=== PATIENT | female | born 1985 | race Caucasian/White ===

== ENCOUNTER 2017-04-02 09:52 | Emergency (ER) | payer SELFPAY ==
[~2017-04-02] VITALS: Ht 162.5 cm; Wt 49.9 kg
== END 2017-04-02 11:12 | disposition home or self-care (01) ==
LOC: ED 09:52
DX: S05.01XA Injury of conjunctiva and corneal abrasion without foreign body, right eye, initial encounter (principal); F17.200 Nicotine dependence, unspecified, uncomplicated; W21.89XA Striking against or struck by other sports equipment, initial encounter; Y93.89 Activity, other specified; Y92.89 Other specified places as the place of occurrence of the external cause; Y99.8 Other external cause status

== ENCOUNTER 2018-02-25 14:32 | Emergency (ER) | payer OTHER ==
[~2018-02-25] VITALS: Ht 162.5 cm; Wt 59.0 kg
[2018-02-25] MEDS ORDERED: Motrin,Rufen800 MG PO (16:02)
== END 2018-02-25 16:16 | disposition home or self-care (01) ==
LOC: ED 14:32
DX: O87.0 Superficial thrombophlebitis in the puerperium (principal); O99.335 Smoking (tobacco) complicating the puerperium; F17.210 Nicotine dependence, cigarettes, uncomplicated; Z98.890 Other specified postprocedural states

== ENCOUNTER → 2019-05-27 | Outpatient (CLI) | payer OTHER ==
[~2019-05-27] MED LIST: Motrin,Rufen800 MG PO
== END | disposition home or self-care (01) ==
LOC: RAD 15:53
DX: R07.9 Chest pain, unspecified (principal)

== ENCOUNTER → 2020-04-02 | Outpatient (CLI) | payer BC ==
[2020-04-02 11:29] LABS: HEMATOCRIT 41.5 % (37.0-47.0); MEAN CELL VOLUME 97.9 fl (81.0-99.0); MEAN CORPUSCULAR HGB 32.1 pg (27.0-31.0); MEAN CORPUSCULAR HGB CONC 32.8 g/dl (33.0-37.0); MEAN PLATELET VOLUME 9.9 fl (9.6-12.3); RED BLOOD COUNT 4.24 10*6/uL (4.10-5.10); WHITE BLOOD COUNT 9.2 10*3/uL (4.8-10.8)
[2020-04-02 11:54] LABS: ALBUMIN 3.8 gm/dl (3.1-4.5); ALKALINE PHOSPHATASE 47 U/L (45-117); BUN 15 mg/dl (7-24); CHLORIDE 109 mmol/L (98-107); CREATININE 0.94 mg/dL (0.55-1.02); POTASSIUM 4.6 mmol/L (3.5-5.1); SGOT/AST 15 IU/L (3-35); SGPT/ALT 21 U/L (12-78); SODIUM 138 mmol/L (136-145); TOTAL PROTEIN 7.3 gm/dL (6.4-8.2)
== END | disposition home or self-care (01) ==
LOC: LAB 10:51
PROVIDERS: Family Medicine
DX: T14.8XXA Other injury of unspecified body region, initial encounter (principal); R52 Pain, unspecified; W57.XXXA Bitten or stung by nonvenomous insect and other nonvenomous arthropods, initial encounter; Y93.89 Activity, other specified; Y92.89 Other specified places as the place of occurrence of the external cause; Y99.8 Other external cause status

== ENCOUNTER 2020-09-12 10:49 | Emergency (ER) | payer BC ==
[~2020-09-12] VITALS: Ht 162.5 cm; Wt 54.4 kg
[2020-09-12] MEDS ORDERED: IBUPROFEN600 MG PO (12:55)
[2020-09-12] MEDS ORDERED: NORCO 5-325 TA1 EACH PO (15:43)
== END 2020-09-12 15:57 | disposition home or self-care (01) ==
LOC: ED 10:49
DX: S42.115A Nondisplaced fracture of body of scapula, left shoulder, initial encounter for closed fracture (principal); W10.8XXA Fall (on) (from) other stairs and steps, initial encounter; Y93.89 Activity, other specified; Y92.89 Other specified places as the place of occurrence of the external cause; Y99.8 Other external cause status

== ENCOUNTER 2022-04-10 13:54 | Emergency (ER) | payer BC ==
[~2022-04-10] VITALS: Ht 162.5 cm; Wt 49.9 kg
[~2022-04-10 13:54] MED LIST changes: +IBUPROFEN600 MG PO; +NORCO 5-325 TA1 EACH PO
[2022-04-10] MEDS ORDERED: Motrin,Rufen800 MG PO (17:37)
[2022-04-10] MEDS ORDERED: HYDROCODONE-AC1 EAC1 PO (17:37)
== END 2022-04-10 18:59 | disposition home or self-care (01) ==
LOC: ED 13:54
DX: S30.23XA Contusion of vagina and vulva, initial encounter (principal); W20.8XXA Other cause of strike by thrown, projected or falling object, initial encounter; Y93.89 Activity, other specified; Y92.89 Other specified places as the place of occurrence of the external cause; Y99.8 Other external cause status

== ENCOUNTER → 2024-01-25 | Outpatient (CLI) | payer BC ==
[~2024-01-25] MED LIST changes: +HYDROCODONE-AC1 EAC1 PO
== END | disposition home or self-care (01) ==
LOC: RAD 12:26 → LAB 12:26
PROVIDERS: ATTEND Nurse Practitioner Family
DX: R07.81 Pleurodynia (principal)

== ENCOUNTER → 2024-01-31 | Outpatient (CLI) | payer BC | END | disposition home or self-care (01) | LOC: MAMMO 00:30 | PROVIDERS: ATTEND Nurse Practitioner Family | DX: N60.01 Solitary cyst of right breast (principal); R92.30 Dense breasts, unspecified ==